=== PATIENT | female | born 1950 | race Caucasian/White ===

== ENCOUNTER 2017-08-24 20:37 | Observation (INO) | payer MEDICARE ==
[~2017-08-24] VITALS: Ht 160 cm; Wt 77.2 kg
[~2017-08-24 20:37] MED LIST: BABY ASPIRIN81 MG OR; CALCIUM600 M1 PO; DIOVAN40 MG PO; FAMVIR500 MG OR; FISH OI1 PO; FLEXERIL OR; LISINOPRIL20 M1 OR; NORCO1 TA1 PO; PERCOCET 5/325M1 TAB PO; PLAVIX75 MG OR; PRILOSEC20 MG PO; RESTORIL15 MG PO; ULTRAM50 M1 OR; ULTRAM50 M1 PO; ULTRAM50 MG OR; VITAMIN C500 M4 PO
[2017-08-24 21:17] LABS: HEMATOCRIT 39.9 % (37.0-47.0); HEMOGLOBIN 13.6 g/dl (12.0-16.0); IMMATURE GRANULOCYTES 0.3 % (0.0-1.0); MEAN CELL VOLUME 88.9 fL CALC (80.0-100.0); MEAN CORPUSCULAR HGB 30.3 pG CALC (26.0-32.0); MEAN CORPUSCULAR HGB CONC 34.1 g/L CALC (32.0-36.0); NEUT# 2.91 thou/uL (2.00-7.15); RED BLOOD COUNT 4.49 mill/uL (4.20-5.60)
[2017-08-24 21:24] LABS: ALBUMIN 4.6 g/dL (3.2-5.0); ALKALINE PHOSPHATASE 66 u/l (38-126); AMYLASE 130 u/l (30-110); ANION GAP 11 (6-22 (CALC)); BILIRUBIN, TOTAL 0.4 mg/dL (0.0-1.4); BUN 16 mg/dL (8-23); BUN/CREATININE RATIO 17 (12-20 (CALC)); CARBON DIOXIDE 28 mmol/l (22-30); CHLORIDE 106 mmol/l (95-108); GFR 55 ML/MIN (>=60 (CALC)); GFR FOR AFR.AMER. > 60 ML/MIN (>=60 (CALC)); LIPASE 246 u/l (23-300); SGOT/AST 38 u/l (9-36); SGPT/ALT 32 u/l (11-66); SODIUM 141 mmol/l (137-146); TOTAL PROTEIN 8.3 g/dL (6.3-8.2)
[2017-08-24 21:28] LABS: INTERNATIONAL NORMALIZED RATIO 0.9 RATIO (0.7-1.3)
[2017-08-24 21:36] LABS: MYOGLOBIN 62 ng/mL (0 - 62)
[2017-08-24 22:50] VITALS: BP 162/88
[2017-08-25 03:00] VITALS: BP 119/63
[2017-08-25 07:29] LABS: URINE BILIRUBIN - DIPSTICK NEGATIVE (NEGATIVE); URINE BLOOD DIPSTICK NEGATIVE (NEGATIVE); URINE COLOR YELLOW; URINE GLUCOSE - DIPSTICK NEGATIVE (NEGATIVE); URINE KETONE NEGATIVE (NEGATIVE); URINE LEUK ESTERASE NEGATIVE (NEGATIVE); URINE NITRITE - DIPSTICK NEGATIVE (Negative); URINE PH 6.5 (4.5-8.0); URINE PROTEIN - DIPSTICK NEGATIVE (NEG-TRACE); URINE UROBILINOGEN - DIPSTICK 0.2 E.U./dL (0.2)
[2017-08-25 07:30] LABS: URINE CLARITY CLEAR
[2017-08-25 08:00] VITALS: BP 127/78
[2017-08-25] MEDS ORDERED: OMEPRAZOLE20 MG PO (08:40)
[2017-08-25 08:47] VITALS: BP 127/78
== END 2017-08-25 10:38 | disposition home or self-care (01) ==
LOC: ED 20:37 → ED-I 21:49 → ED 22:01 → ICU 22:02
PROVIDERS: Emergency Medicine; ADMIT Internal Medicine; ATTEND Internal Medicine
DX: R07.89 Other chest pain (principal); I10 Essential (primary) hypertension; K21.9 Gastro-esophageal reflux disease without esophagitis; E78.5 Hyperlipidemia, unspecified; Z91.14 Patient's other noncompliance with medication regimen

== ENCOUNTER 2017-11-19 07:46 | Emergency (ER) | payer MEDICARE ==
[~2017-11-19] VITALS: Ht 160 cm; Wt 79.5 kg
[~2017-11-19 07:46] MED LIST changes: +OMEPRAZOLE20 MG PO
[2017-11-19] MEDS ORDERED: PRAVASTATIN40 MG PO (07:56)
[2017-11-19] MEDS ORDERED: AMLODIPINE BESYL5 MG PO (07:57)
[2017-11-19] MEDS ORDERED: ZITHROMAX250 MG PO (09:05)
[2017-11-19] MEDS ORDERED: DELTASONE20 MG PO (09:05)
[2017-11-19] MEDS ORDERED: PROVENTIL108 MCG/AC IN (09:05)
[2017-11-19 09:08] VITALS: BP 136/97
== END 2017-11-19 09:22 | disposition home or self-care (01) ==
LOC: ED 07:46
DX: J40 Bronchitis, not specified as acute or chronic (principal); N39.0 Urinary tract infection, site not specified; I10 Essential (primary) hypertension; E78.00 Pure hypercholesterolemia, unspecified; Z85.41 Personal history of malignant neoplasm of cervix uteri

== ENCOUNTER 2018-05-26 08:38 | Emergency (ER) | payer MEDICARE ==
[~2018-05-26] VITALS: Ht 160 cm; Wt 72.0 kg
[~2018-05-26 08:38] MED LIST changes: +AMLODIPINE BESYL5 MG PO; +DELTASONE20 MG PO; +PRAVASTATIN40 MG PO; +PROVENTIL108 MCG/AC IN; +ZITHROMAX250 MG PO
[2018-05-26] MEDS ORDERED: TESSALON PERLE100 MG PO (10:07)
[2018-05-26] MEDS ORDERED: PROVENTIL108 MCG/AC IN (10:07)
[2018-05-26] MEDS ORDERED: MEDDOSEPAK PO (10:07)
[2018-05-26] MEDS ORDERED: ZITHROMAX250 MG PO (10:07)
[2018-05-26 10:18] VITALS: BP 138/88
== END 2018-05-26 10:19 | disposition home or self-care (01) ==
LOC: ED 08:38
DX: J06.9 Acute upper respiratory infection, unspecified (principal); I10 Essential (primary) hypertension